=== PATIENT | male | born 1970 ===

== ENCOUNTER 2017-03-12 00:08 | Emergency (ER) | payer OTHER ==
[2017-03-12 00:20] VITALS: BP 142/80; RESP 20
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
[2017-03-12 02:01] VITALS: PULSE 82; TEMP 98
[2017-03-12 03:00] VITALS: O2SAT 95
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
== END 2017-03-12 01:57 | disposition home or self-care (01) ==
LOC: C.ER 00:08
DX: S46.912A Strain of unspecified muscle, fascia and tendon at shoulder and upper arm level, left arm, initial encounter (principal); S39.012A Strain of muscle, fascia and tendon of lower back, initial encounter; S16.1XXA Strain of muscle, fascia and tendon at neck level, initial encounter; S23.3XXA Sprain of ligaments of thoracic spine, initial encounter; V49.40XA Driver injured in collision with unspecified motor vehicles in traffic accident, initial encounter